=== PATIENT | female | born 1935 | race Caucasian/White ===

== ENCOUNTER → 2019-12-12 | Outpatient (CLI) | payer OTHER ==
[~2019-12-12] MED LIST: CALCA500CH PO; ERGO400 PO; FOLI1 PO; GLYCPS PR; HYDCHL50 PO; HYDSUL200 PO; LIDO5TP TOP; MAGNESIUM CITR100 MG PO; META800 PO; METTREX2.5 PO; Micro-K10 MEQ PO; Milk Of Ma400 MG/5 M PO; NAPR550 PO; Norco 5-325 Ta1 EACH PO; OXYACE5T PO; Omeprazole20 M1 PO; PRED20 PO; PROP60 PO; ROFE25 PO; STOOL SOFTENER1 EAC1 PO
[2019-12-12 12:57] LABS: Bun/Creatinine Ratio 12.9 (12.0-20.0); Calcium, Blood 9.8 mg/dL (8.5-10.1); Creatinine, Blood 0.93 mg/dL (0.40-1.00); Potassium, Blood 4.4 mmol/L (3.5-5.5)
[2019-12-12 13:12] LABS: BASOPHILS ABSOLUTE AUTO 0.07 K/mm3 (0.00-0.23); BASOPHILS PERCENT AUTO 1 % (0-2); EOSINOPHILS ABSOLUTE AUTO 0.36 K/mm3 (0.00-0.68); EOSINOPHILS PERCENT AUTO 5 % (0-6); Hematocrit 39.7 % (33.0-51.0); Hemoglobin 13.2 g/dL (11.5-16.0); IMMATURE GRAN ABSOLUTE AUTO 0.04 K/mm3 (0.00-0.10); IMMATURE GRAN PERCENT AUTO 1 % (0-1); LYMPHOCYTES ABSOLUTE AUTO 1.48 K/mm3 (0.84-5.20); LYMPHOCYTES PERCENT AUTO 21 % (21-46); MONOCYTES PERCENT AUTO 10 % (4-13); Mean Corpuscular HGB 33.2 pg (26.0-34.0); Mean Corpuscular HGB Conc 33.2 g/dL (31.5-36.5); Mean Corpuscular Volume 100 fL (80-100); Mean Platelet Volume 12.3 fL (9.1-12.4); NEUTROPHILS ABSOLUTE AUTO 4.51 K/mm3 (1.96-9.15); NEUTROPHILS PERCENT AUTO 63 % (41-73); Platelet Count 246 K/mm3 (150-400); RDW Coefficient Variation 13.9 % (11.7-14.2); RDW Standard Deviation 50.2 fL (35.1-46.3); Red Blood Cell Count 3.97 M/mm3 (3.80-5.20); White Blood Cell Count 7.16 K/mm3 (4.00-11.30)
== END | disposition home or self-care (01) ==
LOC: LAB SHORT 12:47 → LAB EV 12:47
PROVIDERS: Physician Assistant Surgical
DX: J81.1 Chronic pulmonary edema (principal)
CPT/HCPCS: 80048; 83880; 85025

== ENCOUNTER → 2020-01-06 | Outpatient (CLI) | payer OTHER ==
[2020-01-06 15:16] LABS: Hematocrit 42.5 % (33.0-51.0); Hemoglobin 14.1 g/dL (11.5-16.0); Mean Corpuscular HGB 33.5 pg (26.0-34.0); Mean Corpuscular HGB Conc 33.2 g/dL (31.5-36.5); Mean Corpuscular Volume 101 fL (80-100); Mean Platelet Volume 12.2 fL (9.1-12.4); Platelet Count 305 K/mm3 (150-400); RDW Coefficient Variation 14.1 % (11.7-14.2); RDW Standard Deviation 51.3 fL (35.1-46.3); Red Blood Cell Count 4.21 M/mm3 (3.80-5.20)
[2020-01-06 15:18] LABS: BASOPHILS ABSOLUTE AUTO 0.07 K/mm3 (0.00-0.23); BASOPHILS PERCENT AUTO 1 % (0-2); EOSINOPHILS ABSOLUTE AUTO 0.16 K/mm3 (0.00-0.68); EOSINOPHILS PERCENT AUTO 2 % (0-6); IMMATURE GRAN ABSOLUTE AUTO 0.07 K/mm3 (0.00-0.10); IMMATURE GRAN PERCENT AUTO 1 % (0-1); LYMPHOCYTES ABSOLUTE AUTO 2.07 K/mm3 (0.84-5.20); LYMPHOCYTES PERCENT AUTO 21 % (21-46); MONOCYTES ABSOLUTE AUTO 0.97 K/mm3 (0.16-1.47); MONOCYTES PERCENT AUTO 10 % (4-13); NEUTROPHILS ABSOLUTE AUTO 6.45 K/mm3 (1.96-9.15); NEUTROPHILS PERCENT AUTO 66 % (41-73); White Blood Cell Count 9.79 K/mm3 (4.00-11.30)
[2020-01-06 15:21] LABS: Alanine Aminotransfer (ALT/SGP 18 U/L (12-78); Albumin, Blood 3.9 g/dL (3.4-5.0); Albumin/Globulin Ratio 1.1 (0.8-1.8); Alk Phos 83 U/L (40-126); Anion Gap 8 mmol/L (6-16); Aspartate Aminotrans (AST/SGOT 17 U/L (12-37); Bilirubin, Total 0.4 mg/dL (0.1-1.0); Blood Urea Nitrogen 20 mg/dL (8-24); Bun/Creatinine Ratio 21.3 (12.0-20.0); CO2, Blood 28 mmol/L (21-32); Chloride, Blood 105 mmol/L (98-108); Creatinine, Blood 0.94 mg/dL (0.40-1.00); Globulin, Blood 3.7 g/dL (2.2-4.0); Glomerular Filtration Rate 57 (60-); Glucose, Blood 92 mg/dL (70-99); Potassium, Blood 4.2 mmol/L (3.5-5.5); Sodium, Blood 141 mmol/L (136-145); Total Protein, Blood 7.6 g/dL (6.4-8.2); Troponin I <0.017 ng/mL (0.000-0.040)
== END | disposition home or self-care (01) ==
LOC: LAB EV 15:01 → LAB SHORT 15:01
PROVIDERS: Physician Assistant
DX: R07.9 Chest pain, unspecified (principal)
CPT/HCPCS: 80053; 84484; 85025

== ENCOUNTER 2021-01-29 12:19 | Day surgery (SDC) | payer OTHER ==
[~2021-01-29] VITALS: Ht 154.9 cm; Wt 56.6 kg
--- NOTE | 2021-01-29 13:26 | NUR ---
01/29/21 1326 Chrystal Willson FIRST ATTEMPT MISSED BY ANKIT IN THE RIGHT HAND. SECOND ATTEMPT SUCCESSFUL IN THE RIGHT WRIST BY RN. PT TYRONE.
== END 2021-01-29 14:51 | disposition home or self-care (01) ==
LOC: ORSCSDS 12:19
PROVIDERS: Internal Medicine Gastroenterology
PROC: 0DB68ZX Excision of Stomach, Via Natural or Artificial Opening Endoscopic, Diagnostic (ICD-10-PCS; principal; 2021-01-29 13:45)
PROC: 0D757ZZ Dilation of Esophagus, Via Natural or Artificial Opening (ICD-10-PCS; principal; 2021-01-29 13:45)
PROC: 0DJD8ZZ Inspection of Lower Intestinal Tract, Via Natural or Artificial Opening Endoscopic (ICD-10-PCS; principal; 2021-01-29 13:45)
DX: R13.10 Dysphagia, unspecified (principal); R10.13 Epigastric pain; Z80.0 Family history of malignant neoplasm of digestive organs; Z99.81 Dependence on supplemental oxygen; J44.9 Chronic obstructive pulmonary disease, unspecified; Z79.899 Other long term (current) drug therapy
CPT/HCPCS: 87081; J2704; J7120

== ENCOUNTER → 2021-12-08 | Outpatient (CLI) | payer OTHER | END | disposition home or self-care (01) | LOC: LAB SHORT 15:22 → PLD 15:22 | DX: L82.1 Other seborrheic keratosis (principal) | CPT/HCPCS: 88305 ==

== ENCOUNTER → 2023-06-27 | Outpatient (CLI) | payer OTHER | END | disposition home or self-care (01) | LOC: LAB SHORT 07:39 → LAB 07:39 → PLD 07:39 | DX: L57.0 Actinic keratosis (principal) | CPT/HCPCS: 88305 ==

== ENCOUNTER 2023-07-12 15:29 | Inpatient (IN) | payer OTHER ==
[~2023-07-12] VITALS: Ht 162.6 cm; Wt 53.0 kg
[~2023-07-12 15:29] MED LIST changes: +DOCUZEN 8.6-501 EACH PO; +OMEP20ER PO; -Omeprazole20 M1 PO; +PROP120ER PO; -PROP60 PO; -STOOL SOFTENER1 EAC1 PO
[2023-07-12 17:04] LABS: BASOPHILS ABSOLUTE AUTO 0.06 K/mm3 (0.00-0.23); BASOPHILS PERCENT AUTO 1 % (0-2); EOSINOPHILS ABSOLUTE AUTO 0.25 K/mm3 (0.00-0.68); EOSINOPHILS PERCENT AUTO 3 % (0-6); Hematocrit 40.2 % (33.0-51.0); Hemoglobin 13.2 g/dL (11.5-16.0); IMMATURE GRAN ABSOLUTE AUTO 0.03 K/mm3 (0.00-0.10); IMMATURE GRAN PERCENT AUTO 0 % (0-1); LYMPHOCYTES ABSOLUTE AUTO 1.28 K/mm3 (0.84-5.20); LYMPHOCYTES PERCENT AUTO 17 % (21-46); MONOCYTES PERCENT AUTO 11 % (4-13); Mean Corpuscular HGB 34.6 pg (26.0-34.0); Mean Corpuscular HGB Conc 32.8 g/dL (31.5-36.5); Mean Corpuscular Volume 106 fL (80-100); Mean Platelet Volume 12.3 fL (9.1-12.4); NEUTROPHILS ABSOLUTE AUTO 5.07 K/mm3 (1.96-9.15); NEUTROPHILS PERCENT AUTO 68 % (41-73); Platelet Count 255 K/mm3 (150-400); RDW Coefficient Variation 14.4 % (11.7-14.2); RDW Standard Deviation 55.6 fL (35.1-46.3); Red Blood Cell Count 3.81 M/mm3 (3.80-5.20); White Blood Cell Count 7.49 K/mm3 (4.00-11.30)
[2023-07-12 17:15] LABS: Albumin, Blood 3.8 g/dL (3.4-5.0); Albumin/Globulin Ratio 1.2 (0.8-1.8); Bilirubin, Total 0.4 mg/dL (0.1-1.0); Bun/Creatinine Ratio 17.3 (12.0-20.0); Calcium, Blood 9.9 mg/dL (8.5-10.1); Creatinine, Blood 0.81 mg/dL (0.40-1.00); Globulin, Blood 3.3 g/dL (2.2-4.0); Potassium, Blood 4.3 mmol/L (3.5-5.5); Total Protein, Blood 7.1 g/dL (6.4-8.2)
[2023-07-12] MEDS ORDERED: TRAZ50 PO (21:22)
[2023-07-12] MEDS ORDERED: FOSAMAX70 MG PO (21:26)
[2023-07-12] MEDS ORDERED: GEMTESA75 MG PO (21:27)
[2023-07-12 21:55] VITALS: BP 151/99
[2023-07-13 02:36] VITALS: BP 145/67
--- NOTE | 2023-07-13 05:41 | NUR ---
SHIFT SUMMARY ADMIT FOR L SIDED WEAKNESS, PT REPORTS VERTIGO, DIZZINESS, AND NECK/ HEADACHE PAIN. MINIMAL SLEEP DURING THIS SHIFT. PT CONTINUES TO CALL OUT FOR DAUGHTERS AND REQUEST ITEMS FROM HOME CLOSETS. ABLE TO REDIRECT PT FOR FEW MINUTES. VSS, PT REFUSES CONT BIOX. CONTINENT BUT ATTENDS IN PLACE FOR URGENCY INCONT, USE OF BEDPAN. TELE IN PLACE W/ SEVERAL REPORTS FROM NEON SIGN MECHANIC R/T SVT. BED ALARM IN USE. CALL LIGHT W/ IN REACH ALTHOUGH PT DOES NOT USE. PLANS FOR ECHO TODAY.
[2023-07-13 06:13] LABS: CHOL/HDL RATIO 2.5; Cholesterol 185 mg/dL (50-200); HDL Cholesterol 75 mg/dL (>39); LDL/HDL RATIO 1.3; Low Density Lipoprotein Chol 99 mg/dL (0-110); Triglycerides 55 mg/dL (30-160); Very Low Density Lipoprot Chol 11 mg/dL (6-32)
[2023-07-13 08:35] VITALS: BP 153/97
[2023-07-13 15:21] VITALS: BP 157/73
--- NOTE | 2023-07-13 17:20 | NUR ---
SHIFT SUMMARY Pt remains oriented to self only this shift. Easily redirectable with short term memory loss. Bed alarm on, pt continues to try and get oob. Iv pulled out this am, restarted after video camera in place. Diversion activities attempted without success. Chela placed as ordered. Family now at bedside and updated. VSS, ST on tele. Resp even nonlabored on RA. Continent of urine, will ask to use toilet. 1 person ast to BSC. Mech soft diet with nectar thick liquids. Meds in applesauce.
[2023-07-13 19:41] VITALS: BP 163/113
--- NOTE | 2023-07-14 05:07 | NUR ---
END OF SHIFT SUMMARY PT A&O x1, TO SELF ONLY, PT WAS TRANSFERED TO THE SCU NOW IN ROOM #344. PT HAS CAMERA/MONITOR FOR SAFETY. PT RESTLESS ALL OF LAST NIGHT, ATTEMPTING TO GET OOB, PULLING TELE CORDS OFF. SOFT WRIST RESTRAINTS PLACED ON DURING DAY SHIFT. PT FINALLY APPEARED TO BE SLEEPING COMFORTABLY EARLY THIS MORNING AROUND 0300. PT YELLING OUT FOR "JEFERSON" AND WONDERING WHERE JEFERSON WAS. PT EXPERIENCED SOME VISUAL HALLUCINATIONS, PT THOUGHT THERE WAS A MAN SITTING IN HER ROOM. PT REORIENTED, NOT VERY SUCCESSFUL. PT TOOK MEDICATION CRUSHED IN PUDDING. PT RECEIVED ONE TIME DOSE OF SEROQUEL, AND PO TRAZODONE AT 2100 MED PASS. FLUIDS AND SNACKS OFFERED, CIRCULATION CHECKED, NO INJURIES NOTED. CALL LIGHT WITHIN REACH, WCTM.
[2023-07-14 08:14] VITALS: BP 173/80
--- NOTE | 2023-07-14 12:08 | NUR ---
FAMILY IN VISITING, PATIENT WAKES PLEASANTLY AND THEN BACK TO SLEEP, UNABLE TO STAY AWAKE FOR 5 MINUTES, BREAKFAST AND AM MEDICATIONS HELD FOR WHEN PATIENT IS MORE ALERT, RESTRAINTS OFF AR 1046, PATIENT CALM, NOT FIGITING, NO RESTLESS MOVEMENTS, WCTM
[2023-07-14 12:35] VITALS: BP 161/65
[2023-07-14 16:43] VITALS: BP 145/78
--- NOTE | 2023-07-14 19:18 | NUR ---
ALERTNESS INCREASED, ORIENTED TO SELF ANF FAMILY, PATIETN EASILY RE-DIRECTED AND CONSOLABLE, RESTRAINTS OFF SINCE 1045, NO AGGITATION IMPULSIVENESS, BED ALARM ON, HTN 160 SBP, WILL RELAY TO PM RN
[2023-07-14 21:10] VITALS: BP 123/69
[2023-07-15 05:11] LABS: BASOPHILS ABSOLUTE AUTO 0.05 K/mm3 (0.00-0.23); BASOPHILS PERCENT AUTO 1 % (0-2); EOSINOPHILS ABSOLUTE AUTO 0.25 K/mm3 (0.00-0.68); EOSINOPHILS PERCENT AUTO 2 % (0-6); Hematocrit 38.8 % (33.0-51.0); Hemoglobin 13.1 g/dL (11.5-16.0); IMMATURE GRAN ABSOLUTE AUTO 0.06 K/mm3 (0.00-0.10); IMMATURE GRAN PERCENT AUTO 1 % (0-1); LYMPHOCYTES ABSOLUTE AUTO 1.97 K/mm3 (0.84-5.20); LYMPHOCYTES PERCENT AUTO 18 % (21-46); MONOCYTES ABSOLUTE AUTO 1.29 K/mm3 (0.16-1.47); MONOCYTES PERCENT AUTO 12 % (4-13); Mean Corpuscular HGB Conc 33.8 g/dL (31.5-36.5); Mean Corpuscular Volume 104 fL (80-100); NEUTROPHILS ABSOLUTE AUTO 7.39 K/mm3 (1.96-9.15); NEUTROPHILS PERCENT AUTO 67 % (41-73); Platelet Count 266 K/mm3 (150-400); RDW Coefficient Variation 14.1 % (11.7-14.2); RDW Standard Deviation 53.2 fL (35.1-46.3); Red Blood Cell Count 3.74 M/mm3 (3.80-5.20); White Blood Cell Count 11.01 K/mm3 (4.00-11.30)
[2023-07-15 05:19] VITALS: BP 114/61
[2023-07-15 05:34] LABS: Albumin, Blood 3.4 g/dL (3.4-5.0); Albumin/Globulin Ratio 0.9 (0.8-1.8); Bilirubin, Total 0.7 mg/dL (0.1-1.0); Bun/Creatinine Ratio 23.7 (12.0-20.0); Calcium, Blood 9.9 mg/dL (8.5-10.1); Creatinine, Blood 0.72 mg/dL (0.40-1.00); Globulin, Blood 3.7 g/dL (2.2-4.0); Potassium, Blood 4.2 mmol/L (3.5-5.5); Total Protein, Blood 7.1 g/dL (6.4-8.2)
--- NOTE | 2023-07-15 05:55 | NUR ---
SHIFT SUMMARY NOC PT A/O TO SELF AND FAMILY. PLEASANTLY CONFUSED AND COOPERATIVE WITH CARE. NO ACUTE CHANGES TO REPORT. NO C/O OF BROWN OR ABD PAIN SO FAR DURING SHIFT. PT HAS NOT CALLED OUT FOR DAUGHTERS. ON TELE RUNNING SINUS RHYTHM @ 82 BPM. PT HAS SLEPT FOR MAJORITY OF SHIFT, BUT HAD STAFF ASSIST WITH ATTEMPTING TO CALL FAISAL ESTRADA, BUT ONLY VOICE MAIL REACHED. PT IS ON CAMERA WITH ONLY ONE CALL FROM REMOTE MONITOR FOR GETTING TOO CLOSE TO RAILING. PT IS CURRENTLY RESTING WITH BED IN LOWEST POSITION, AND CALL LIGHT WITHIN REACH.
[2023-07-15 07:45] VITALS: BP 144/67
--- NOTE | 2023-07-15 09:21 | NUR ---
PT IN WORKING WITH PATIENT, PATIENT EMOTIONAL AND CONFUSED THIS AM, "I AM BEING HELD HOSTAGE IN HERE WHY CAN I JUST WALK OUT" PATIENT EDUCATED MULTIPLE TIMES THE NEED FOR PT TO STRENGTHEN HER AMBULATION, PATIENT HAS ONLY TRANSFERRED TO THE BSC PREVIOUSLY, MONITOR AND BED/CHAIR ALARMS ON. CALL LIGHT WITH IN REACH
[2023-07-15 16:47] VITALS: BP 94/58
--- NOTE | 2023-07-15 18:31 | NUR ---
ALERTNESS AND ORIENTATION IMPROVED, ABLE TO MAKE NEEDS KNOWN, FAMILY VISITED THROUGH OUT THE DAY, WORKED WITH PT, 2 PERSON MAX ASSIST TO COMMODE, PATIENT HARD TO RE-ORIENT AT TIMES AND UNCONSOLABLE AT TIMES, VSS, MEDICATED WITH PRN SERQUEL AND TYLENOL, NICOTINE PATCH STARTED TODAY, BED ALARM ON, CAMERA MONITOR ON, CALL LIGHT WITH IN REACH, PATIENT MAKES NEEDS KNOWN, WILL RELAY TO PM RN
[2023-07-15 19:51] VITALS: BP 120/68
[2023-07-16 03:36] VITALS: BP 135/72
--- NOTE | 2023-07-16 04:00 | NUR ---
SHIFT SUMMARY PATIENT HAD NO ACUTE CHANGES. ON VIRTUAL MONITOR X ONE OOB ATTEMPT. AXOX 2 AND 2 MAX ASSIST TO BSC. PIV REMAINS INTACT. TELE MONITOR NSR 79. VSS/AFEBRILE. TAKES MEDICATION WHOLE 1-2 IN APPLESAUCE. DENIES CHEST PAIN, SOB, AND N/V. REPORTED FOOT/WRIST PAIN AND TYLENOL 650 MG GIVEN PER EMAR. ON ROOM AIR. CALL LIGHT IN REACH. BED IN LOWEST POSITION AND ALARM ACTIVATED. WILL CONTINUE TO MONITOR UNTIL DAY SHIFT NURSE ASSUMES CARE.
[2023-07-16 06:13] LABS: BASOPHILS ABSOLUTE AUTO 0.07 K/mm3 (0.00-0.23); BASOPHILS PERCENT AUTO 1 % (0-2); EOSINOPHILS ABSOLUTE AUTO 0.29 K/mm3 (0.00-0.68); EOSINOPHILS PERCENT AUTO 3 % (0-6); Hematocrit 39.5 % (33.0-51.0); Hemoglobin 12.8 g/dL (11.5-16.0); IMMATURE GRAN ABSOLUTE AUTO 0.05 K/mm3 (0.00-0.10); IMMATURE GRAN PERCENT AUTO 1 % (0-1); LYMPHOCYTES PERCENT AUTO 26 % (21-46); MONOCYTES ABSOLUTE AUTO 1.01 K/mm3 (0.16-1.47); MONOCYTES PERCENT AUTO 12 % (4-13); Mean Corpuscular HGB 34.3 pg (26.0-34.0); Mean Corpuscular HGB Conc 32.4 g/dL (31.5-36.5); Mean Corpuscular Volume 106 fL (80-100); Mean Platelet Volume 11.9 fL (9.1-12.4); NEUTROPHILS ABSOLUTE AUTO 4.88 K/mm3 (1.96-9.15); NEUTROPHILS PERCENT AUTO 57 % (41-73); Platelet Count 240 K/mm3 (150-400); RDW Coefficient Variation 14.1 % (11.7-14.2); RDW Standard Deviation 54.4 fL (35.1-46.3); Red Blood Cell Count 3.73 M/mm3 (3.80-5.20)
[2023-07-16 07:03] LABS: Bun/Creatinine Ratio 25.3 (12.0-20.0); Calcium, Blood 9.7 mg/dL (8.5-10.1); Creatinine, Blood 0.99 mg/dL (0.40-1.00); Potassium, Blood 3.8 mmol/L (3.5-5.5)
[2023-07-16 07:43] VITALS: BP 120/69
[2023-07-16 16:07] VITALS: BP 132/72
[2023-07-16 19:17] VITALS: BP 136/71
[2023-07-17 02:26] VITALS: BP 141/71
--- NOTE | 2023-07-17 04:04 | NUR ---
SHIFT SUMMARY PATIENT HAD NO ACUTE CHANGES. AXO X 2 AND 2 MAX ASSIST TO BSC. MEDICATION SEROQUEL AND TYLENOL GIVEN PRN. VSS/AFEBRILE. DENIES CHEST PAIN, SOB, AND N/V. ON ROOM AIR. NO OOB EVENTS. PIV REMAINS INTACT. RESTED IN BED T/O SHIFT. CALL LIGHT IN REACH. BED IN LOWEST POSITION AND ALARM ACTIVATED. WILL CONTINUE TO MONITOR UNTIL DAY SHIFT NURSE ASSUMES CARE.
[2023-07-17 07:30] VITALS: BP 142/82
[2023-07-17 16:24] VITALS: BP 117/76
--- NOTE | 2023-07-17 17:17 | NUR ---
SHIFT SUMMARY- PT IS ALERT, PLESANT AND COOPERATIVE. SHE IS EATING AND DRINKING WELL. SLEPT INTERMITENTLY THROUGHOUT THIS SHIF. FAMILY WAS AT BEDSIDE MOST OF THIS SHIFT. SHE WORKED WITH PT/ OT/ ST AND TOLORATED WELL. MARKETING STRATEGIST SPOKE WITH BOTH DAUGHTERS ABOUT DISCHARGE PLAN. PT REPORTED THAT SHE WANTED TO GO HOME AND NOT TO A SNF, BUT PT AND OT ARE STILL RECOMENDING SNF. HER BED IS IN THE LOW POSITION AND CALL LIGHT IS WITIN REACH.
[2023-07-17 19:07] VITALS: BP 106/57
[2023-07-18 01:05] VITALS: BP 150/70
--- NOTE | 2023-07-18 03:46 | NUR ---
SHIFT SUMMARY ADMITTED FOR CVA. LEFT SIDED WEAKNESS, VISUAL DEFICIT. FULL CODE. PLAN IS FOR PLACEMENT. MEDS GIVEN WHOLE WITH APPLESAUCE. A&O X2 FORGETFUL. BED ALARM ON FOR IMPULSIVENESS. SHE IS CONTINENT. SHE WAS LIVING ALONE.
[2023-07-18 08:02] VITALS: BP 104/70
[2023-07-18 15:14] VITALS: BP 115/59
--- NOTE | 2023-07-18 18:29 | NUR ---
SHIFT SUMMARY PT ALERT TO SELF AND FAMILY AT START OF SHIFT BUT MORE AWARE OF PLACE AND SITUATION THE DAY WENT ON. NO ACUTE CHANGES. VSS. PT DID C/O OF HEADACHE. WARM WASHCLOTH OFFERED AND MEDICATED PER EMAR. FAMILY AT BEDSIDE T/O DAY. BED IN LOWEST POSITION AND CALL LIGHT IN REACH.
[2023-07-18 20:25] VITALS: BP 124/73
--- NOTE | 2023-07-19 07:09 | NUR ---
SHIFT SUMMARY NOC PT A/O X 2-3. PLEASANT AND COOPERATIVE WITH CARE, BUT CONFUSED AT TIMES. NO ACUTE CHANGES TO REPORT. PT ABLE TO AMBULATE WITH FWW SBA TO BATHROOM. PT HAD NO C/O OF BROWN. PT IS AWAITING SNF PLACEMENT OUTSIDE OF AREA WITH REFERRALS IN [facility], AND [place]. PT STATES DESIRE TO RETURN TO OWN HOME. PT IS CURRENTLY RESTING WITH BED ALARM ON, BED IN LOWEST POSITION, AND CALL LIGHT WITHIN REACH.
[2023-07-19 07:16] VITALS: BP 123/57
[2023-07-19] MEDS ORDERED: Acetaminophen650 M1 PO (12:56)
[2023-07-19] MEDS ORDERED: AMLO5 PO (12:57)
[2023-07-19] MEDS ORDERED: ATOR80 PO (12:57)
[2023-07-19] MEDS ORDERED: CLOP75 PO (12:57)
[2023-07-19] MEDS ORDERED: TRAM50 PO (12:58)
[2023-07-19] MEDS ORDERED: NICO21TP TOP (12:58)
[2023-07-19] MEDS ORDERED: PROP80ER PO (12:59)
[2023-07-19 15:27] VITALS: BP 124/59
--- NOTE | 2023-07-19 19:36 | NUR ---
SHIFT SUMMARY PT A&OX3. PT MORE EMOTIONAL TODAY. PT VERBALIZED MISSING HER AND STATING THAT SHE WATNED TO "GO HOME WERE THINGS WHERE FAMILIAR". PT ALSO MORE IRRITABLE TODAY AND STATED SEVERAL TIMES THAT SHE WANTED TO GO HOME. FAMILY AT BESIDE T/O DAY. FAMILY AND THIS NURSE EDUCATED PT ON TREATMENT PLAN AND BENEFITS OF CONTINUED REHABILITION AT SNF. PT WORKED WITH PHYSICAL THERAPY, OT, AND ST TODAY AND TOLERATED WELL. VSS. PT DID C/O HEADACHE AND MEDIATED PER EMAR. PT CALLS APPROPRIATLY. BED IN LOWEST POSITION AND CALL LIGHT IN REACH.
[2023-07-19 19:46] VITALS: BP 122/68
[2023-07-20 04:00] VITALS: BP 133/71
--- NOTE | 2023-07-20 05:06 | NUR ---
SHIFT SUMMARY PT IS A&OX3, OFF ON DATE. VSS. NO NEW ACUTE NEURO CHANGES THIS SHIFT. C/O BROWN AND LEFT SIDE ON RIB CAGE, MANAGED WITH PRN TYLENOL. TOLERATING A REGULAR DIET. VOIDING IN BSC. X1 ASSIST WITH FWW. BED ALARM SET FOR PT'S SAFETY. BED IN LOWEST POSITION, CALL LIGHT WITHIN REACH. FIRE SAFETY CHECKS COMPLETED
[2023-07-20 07:12] VITALS: BP 131/71
[2023-07-20 15:43] VITALS: BP 104/51
[2023-07-20 19:31] VITALS: BP 97/56
--- NOTE | 2023-07-20 19:48 | NUR ---
SHIFT SUMMARY PATIENT RESTING IN BED OR RECLINER CHAIR THROUGH MOST OF SHIFT WITH DAUGHTER KENTRELL. DAUGHTER ASSISTS PATIENT TO BATHROOM WITH WALKER WITH NO ISSUES. PATIENT MEDICATED FOR HEADACH AND LEFT RIB PAIN PER EMAR WITH GOOD RELIEF FROM TYLENOL. PATIENT WAS CALM THROUGHOUT DAY, SHE VERBALIZES ANXIOUSNESS THIS EVENENING AFTER DAUGHTER LEFT AROUND 5:00PM. PATIENT UPSET SHE DOESNT KNOW WHAT THE PLAN IS, LOOM CHANGER REMINDED PATIENT OF PLAN TO DISCHARGE TO SNF TOMORROW AND THAT ONE OF HER DAUGHTERS IS PLANNING TO TAKE HER. BED IN LOW POSITION. PATIENT USES CALL LIGHT SOME, BED ALARM ON FOR PATIENT SAFETY.
--- NOTE | 2023-07-21 04:44 | NUR ---
SHIFT SUMMARY; NO ACUTE CHANGES OVERNIGHT. THE PT IS AXO X2-3 AND A 1 ASSIST TO THE BSC W/ A FWW. THE PT HAS BEEN SLEEPING IN BED T/O THE NIGHT. PT IS ANXIOUS TO LEAVE TO [facility] TODAY, PT IS HOWEVER FEARFUL THAT HER DAUGHTER WILL FORGET TO PICK HER UP AND TAKE HER TODAY. THE PT HAS DENIED ANY PAIN, CHEST PAIN/PRESSURE, SOB OR N/V THIS SHIFT. CURRENTLY THE PT IS SLEEPING IN BED WITH THE BED IN THE LOWEST POSITION AND THE CALL LIGHT AT BEDSIDE. FIRE SAFETY ROUNDS COMPLETED.
[2023-07-21 06:03] VITALS: BP 143/62
[2023-07-21 07:43] VITALS: BP 125/58
--- NOTE | 2023-07-21 13:36 | NUR ---
DISCHARGE: PT DISCHARGED @ 1240 VIA WHEELCHAIR WITH DAUGHTERS. PT GOING TO SNF IN [place]. REPORT CALLED TO FACILITY. NO IV TO REMOVE. PT HAD LARGE BM PRIOR TO D/C. NO CONCERNS AT TIME OF DISCHARGE.
== END 2023-07-21 13:13 | DRG 65 ==
LOC: ER 15:29 → MEDS 15:30 → ENPENDDIS 07-19 12:18 → MEDS 07-21 13:13
PROVIDERS: Family Medicine; Student in an Organized Health Care Education/Training Program; ADMIT Internal Medicine
DX: I63.9 Cerebral infarction, unspecified (principal); G81.94 Hemiplegia, unspecified affecting left nondominant side; J44.9 Chronic obstructive pulmonary disease, unspecified; R41.0 Disorientation, unspecified; R29.6 Repeated falls; I10 Essential (primary) hypertension; S51.819A Laceration without foreign body of unspecified forearm, initial encounter; F17.210 Nicotine dependence, cigarettes, uncomplicated; K21.9 Gastro-esophageal reflux disease without esophagitis; M19.90 Unspecified osteoarthritis, unspecified site; R29.704 NIHSS score 4; Z71.6 Tobacco abuse counseling; Z88.2 Allergy status to sulfonamides; Z88.8 Allergy status to other drugs, medicaments and biological substances; Z88.4 Allergy status to anesthetic agent
CPT/HCPCS: 36415; 70450; 70496; 70498; 71046; 72125; 80048; 80053; 80061; 83036; 85025; 85651; 92526; 92610; 93005; 93010; 93306; 94760; 94762; 96372; 96374; 96375; 96376; 97110; 97112; 97116; 97161; 97166; 97530; 97535; 99285-25; A9270; G0378; J0360; J1650; J3010; J8610; Q9967

== ENCOUNTER 2023-10-10 15:21 | Inpatient (IN) | payer OTHER ==
[~2023-10-10] VITALS: Ht 154.9 cm; Wt 49.9 kg
[~2023-10-10 15:21] MED LIST changes: +AMLO5 PO; +ATOR80 PO; +Acetaminophen650 M1 PO; +CLOP75 PO; +FOSAMAX70 MG PO; +GEMTESA75 MG PO; +NICO21TP TOP; +PROP80ER PO; +TRAM50 PO; +TRAZ50 PO
[2023-10-10 16:06] LABS: Hematocrit 40.9 % (33.0-51.0); Hemoglobin 13.4 g/dL (11.5-16.0); Mean Corpuscular HGB 31.9 pg (26.0-34.0); Mean Corpuscular HGB Conc 32.8 g/dL (31.5-36.5); Mean Corpuscular Volume 97 fL (80-100); Platelet Count 229 K/mm3 (150-400); RDW Coefficient Variation 15.9 % (11.7-14.2); RDW Standard Deviation 56.2 fL (35.1-46.3)
[2023-10-10 16:09] LABS: Mean Platelet Volume 12.9 fL (9.1-12.4); White Blood Cell Count 8.52 K/mm3 (4.00-11.30)
[2023-10-10 16:27] LABS: Albumin/Globulin Ratio 0.7 (0.8-1.8); BASOPHILS PERCENT MAN 0 % (0-2); Bilirubin, Direct 3.1 mg/dL (0.0-0.3); Bilirubin, Indirect 0.9 mg/dL (0.1-0.7); Bun/Creatinine Ratio 14.9 (12.0-20.0); Calcium, Blood 9.8 mg/dL (8.5-10.1); Creatinine, Blood 0.87 mg/dL (0.40-1.00); EOSINOPHILS ABSOLUTE MAN 0.34 K/mm3 (0.00-0.68); EOSINOPHILS PERCENT MAN 4 % (0-6); Globulin, Blood 4.4 g/dL (2.2-4.0); LYMPHOCYTES ABSOLUTE MAN 1.78 K/mm3 (0.84-5.20); LYMPHOCYTES PERCENT MAN 21 % (21-46); MONOCYTES ABSOLUTE MAN 0.93 K/mm3 (0.16-1.47); MONOCYTES PERCENT MAN 11 % (4-13); NEUTROPHILS ABSOLUTE MAN 5.45 K/mm3 (1.96-9.15); Potassium, Blood 3.9 mmol/L (3.5-5.5); SEG NEUTROPHILS PERCENT MAN 64 % (41-73); TOTAL CELLS COUNTED 100; Total Protein, Blood 7.4 g/dL (6.4-8.2)
[2023-10-10] MEDS ORDERED: LORazepam 2 MG/ML 1ML Injection IV ONE (20:10)
[2023-10-10] MEDS ORDERED: NS 1,000 ML IV SCH (20:20)
[2023-10-10] MEDS ORDERED: Gabapentin 300 MG Cap PO ONE (20:45)
[2023-10-10] MEDS ORDERED: Gabapentin 100 MG Cap PO ONE (21:10)
[2023-10-10] MEDS ORDERED: GABA100 PO (22:09)
[2023-10-10] MEDS ORDERED: Melatonin 5 MG Tablet PO PRN (22:15)
[2023-10-10 22:22] LABS: International Normalized Ratio 1.16; Prothrombin Time Results 12.1 Sec (9.7-11.5)
[2023-10-10 23:05] VITALS: BP 150/52
[2023-10-10 23:12] LABS: Acetaminophen, Random <2.0 ug/mL (10.0-30.0)
[2023-10-10] MEDS ORDERED: PANTOPRAZOLE SO2010 PO (23:29)
[2023-10-10] MEDS ORDERED: ESCITALOPRAM OXA5 MG PO (23:30)
[2023-10-11 02:25] VITALS: BP 133/76
[2023-10-11 05:41] LABS: BASOPHILS ABSOLUTE AUTO 0.08 K/mm3 (0.00-0.23); BASOPHILS PERCENT AUTO 1 % (0-2); EOSINOPHILS ABSOLUTE AUTO 0.72 K/mm3 (0.00-0.68); EOSINOPHILS PERCENT AUTO 9 % (0-6); Hematocrit 36.1 % (33.0-51.0); IMMATURE GRAN ABSOLUTE AUTO 0.01 K/mm3 (0.00-0.10); IMMATURE GRAN PERCENT AUTO 0 % (0-1); LYMPHOCYTES ABSOLUTE AUTO 1.89 K/mm3 (0.84-5.20); LYMPHOCYTES PERCENT AUTO 24 % (21-46); MONOCYTES ABSOLUTE AUTO 1.38 K/mm3 (0.16-1.47); MONOCYTES PERCENT AUTO 17 % (4-13); Mean Corpuscular HGB 31.7 pg (26.0-34.0); Mean Corpuscular HGB Conc 33.2 g/dL (31.5-36.5); Mean Corpuscular Volume 96 fL (80-100); NEUTROPHILS ABSOLUTE AUTO 3.91 K/mm3 (1.96-9.15); NEUTROPHILS PERCENT AUTO 49 % (41-73); Platelet Count 195 K/mm3 (150-400); RDW Coefficient Variation 15.8 % (11.7-14.2); RDW Standard Deviation 55.3 fL (35.1-46.3); Red Blood Cell Count 3.78 M/mm3 (3.80-5.20); White Blood Cell Count 7.99 K/mm3 (4.00-11.30)
[2023-10-11 05:49] LABS: Mean Platelet Volume 13.4 fL (9.1-12.4)
[2023-10-11] MEDS ORDERED: Omeprazole 20 MG CapCR PO SCH (06:00)
[2023-10-11 06:55] LABS: Albumin, Blood 2.5 g/dL (3.4-5.0); Albumin/Globulin Ratio 0.7 (0.8-1.8); Bilirubin, Direct 2.6 mg/dL (0.0-0.3); Bilirubin, Total 3.4 mg/dL (0.1-1.0); Bun/Creatinine Ratio 14.5 (12.0-20.0); Creatinine, Blood 0.76 mg/dL (0.40-1.00); Globulin, Blood 3.6 g/dL (2.2-4.0); Potassium, Blood 3.5 mmol/L (3.5-5.5); Total Protein, Blood 6.1 g/dL (6.4-8.2)
[2023-10-11 07:30] VITALS: BP 127/72
[2023-10-11] MEDS ORDERED: Trospium Chloride 20 MG Tab PO SCH (07:30)
--- NOTE | 2023-10-11 08:05 | NUR ---
SHIFT SUMMARY PT A&OX4 AND PLEASANT. NO C/O PAIN. CALLS APPROPRIATLY. PT ABLE TO SLEEP MOST OF THE NIGHT. VSS. DR PRASAD IN TO SEE PT DURING THE NIGHT. BED IN LOWEST POSITION AND CALL LIGHT IN REACH.
[2023-10-11] MEDS ORDERED: Clopidogrel Bisulfate 75 MG Tab PO SCH (09:00)
[2023-10-11] MEDS ORDERED: Docusate Sodium/Senna 1 Tab PO SCH ×2 (09:00→21:00)
[2023-10-11] MEDS ORDERED: Hydroxychloroquine Sulfate 200 MG Tab PO SCH (09:00)
[2023-10-11] MEDS ORDERED: Methotrexate Sod 2.5 MG Tab PO SCH (09:00)
[2023-10-11] MEDS ORDERED: AmLODIPine Besylate 5 MG Tab PO SCH (09:00)
[2023-10-11] MEDS ORDERED: Nicotine 7 MG PATCH TOP SCH (09:00)
[2023-10-11] MEDS ORDERED: Propranolol HCL 80 MG CAPCR PO SCH (09:00)
[2023-10-11] MEDS ORDERED: MELATONIN5 M1 PO (11:49)
[2023-10-11] MEDS ORDERED: Sod Phosphate/Sod Biphosphate 132 ML BTL PR PRN (15:45)
--- NOTE | 2023-10-11 15:48 | NUR ---
Patient is lying in bed and crying and so we began a conversation about what her tears mean. She tells me the story of the loss of her beloved of 45yrs, Piter, who last February of pancreatic cancer. She also shares about her medical challenges that began just before Thanksgiving of last yr and how she has wandy so hard for her independence, sight and mobility. She speaks of the strong family support, the laughter and the love. She talks about her luz that was mostly driven by Piter's devotion to God. She explains that she has had to lean into God for help and drive. We talk about what Piter would say to her today, about how the time with him was such a gift and what legacy she has the privilege of carrying forward. I normalize her feelings and fears, reinforce helpful attitudes and practices and provide therapeutic listening, grief support, anxiety containment and prayer. Patient responded well and showed signs of an increase in hope and andrea.
[2023-10-11 16:50] VITALS: BP 142/120
[2023-10-11 19:18] VITALS: BP 136/48
--- NOTE | 2023-10-11 19:19 | NUR ---
alert and oriented to all, family active in care, patient easily makes needs known, indepedant in room, dr zuniga consulted, enema given, patient has a rock hard stool impaction. vl mesenteric duplx study done at bedside, patient npo for the procedure, clarifying diet now. patient has had paste ckay colored stool, but minimal amount. palliative care to round on patient in the morning, chaplian rounding daily also, patient becomes very emotional and unconsolable at times when family is not at bedside. heating pad to abd, l and r uq pain still there, clarified all medications with family and updated the emar, call light with in reach, will relay to pm rn
[2023-10-11] MEDS ORDERED: TraZODone HCl 50 MG Tab PO SCH (21:00)
[2023-10-11] MEDS ORDERED: Gabapentin 100 MG Cap PO SCH (21:00)
[2023-10-11] MEDS ORDERED: Polyethylene Glycol 3350 17 gm PO SCH ×2 (21:00)
--- NOTE | 2023-10-12 04:32 | NUR ---
SHIFT SUMMARY PT A&O X4, SOME CONFUSION NOTICED OR POSSIBLY DUE TO HER SPEACH AND VISUAL IMPAIRMENT. PT IS BLIND IN LEFT EYE AND SPEAKS IN SHORT WORD SENTENCES. PT EXPRESSES THAT SHE HAD A HARD DAY. SHE EXPRESSES THAT HER DETERIORATING HEALTH MAKES HER EMOTIONAL AND SHE DOES NOT WANT ANY BURDENS ON HER CHILDREN. PT RECEIVED A SOAP SUDS ENEMA DURING DAY SHIFT. PT DID HAVE A SMEAR IN THE TOILET. PT DID NOT WANT ANOTHER ENEMA THIS SHSIFT. HOWEVER PT HAS FLEET ENEMAS ORDERED DAILY FOR CONSTIPATION. GAVE PT MIRILAX THIS SHIFT. BED KEPT IN LOWEST POSIITON WITH CALL LIGHT IN REACH. BED ALARM ON. HEAT PAD FOR ABD PAIN AND TP KEEP PT WARM.
[2023-10-12 06:01] VITALS: BP 111/62
[2023-10-12 06:02] LABS: Hematocrit 34.9 % (33.0-51.0); Hemoglobin 11.8 g/dL (11.5-16.0); Mean Corpuscular HGB 32.1 pg (26.0-34.0); Mean Corpuscular HGB Conc 33.8 g/dL (31.5-36.5); Mean Corpuscular Volume 95 fL (80-100); Platelet Count 196 K/mm3 (150-400); RDW Coefficient Variation 15.7 % (11.7-14.2); RDW Standard Deviation 54.9 fL (35.1-46.3); Red Blood Cell Count 3.68 M/mm3 (3.80-5.20)
[2023-10-12 06:23] LABS: Albumin, Blood 2.7 g/dL (3.4-5.0); Albumin/Globulin Ratio 0.8 (0.8-1.8); Bilirubin, Total 3.5 mg/dL (0.1-1.0); Bun/Creatinine Ratio 13.5 (12.0-20.0); Calcium, Blood 9.6 mg/dL (8.5-10.1); Creatinine, Blood 0.81 mg/dL (0.40-1.00); Globulin, Blood 3.4 g/dL (2.2-4.0); Potassium, Blood 3.7 mmol/L (3.5-5.5); Total Protein, Blood 6.1 g/dL (6.4-8.2)
[2023-10-12 06:28] LABS: BASOPHILS PERCENT MAN 0 % (0-2); EOSINOPHILS PERCENT MAN 5 % (0-6); LYMPHOCYTES % ATYPICAL MANUAL 1 % (0-0); LYMPHOCYTES PERCENT MAN 27 % (21-46); MONOCYTES PERCENT MAN 9 % (4-13); SEG NEUTROPHILS PERCENT MAN 58 % (41-73); TOTAL CELLS COUNTED 100
[2023-10-12 06:41] LABS: EOSINOPHILS ABSOLUTE MAN 0.42 K/mm3 (0.00-0.68); LYMPHOCYTES ABSOLUTE MAN 2.38 K/mm3 (0.84-5.20); MONOCYTES ABSOLUTE MAN 0.76 K/mm3 (0.16-1.47); NEUTROPHILS ABSOLUTE MAN 4.93 K/mm3 (1.96-9.15); White Blood Cell Count 8.51 K/mm3 (4.00-11.30)
[2023-10-12 07:45] VITALS: BP 112/68
--- NOTE | 2023-10-12 08:00 | NUR ---
Pt laying in bed awake a/ox3, forgetful, cooperative with care, is impulsive, and gets up indep, lungs are clear t/o, resp even and unlabored, no cough noted, on r/a, hrr, no edema noted, ppp +1, cap refill<3 sec, vs stable, afebrile, piv to rac site is clear and patent, btx4, abd flat soft nontender, voids without diff, skin c/w/d, maew, romeo, call light in reach.
[2023-10-12] MEDS ORDERED: Nicoderm Cq1 EACH TOP (10:45)
[2023-10-12] MEDS ORDERED: MIRALAX11910 PO (10:46)
[2023-10-12] MEDS ORDERED: AMLO5 PO (10:48)
--- NOTE | 2023-10-12 11:20 | NUR ---
Pt has been discharged to home, went over instructions with her and her daughter, they verbalized understanding, iv removed intact, faxed new medications to [facility]. she understands to call for follow up appts. has all belonings, and hard script for labs were given. left via wheelchair with daughter and graphics intern in attendence.
[2023-10-12 15:26] LABS: HEPATITIS A ANTIBODY, IGM Negative (Negative); HEPATITIS B CORE ANTIBODY, IGM Negative (Negative); HEPATITIS B SURFACE ANTIGEN Negative (Negative); HEPATITIS C AB CIA INTERP Negative (Negative); HEPATITIS C ANTIBODY CIA INDEX 0.03 IV
[2023-10-16] MEDS ORDERED: Alendronate Sodium 70 MG Tablet PO SCH (06:00)
== END 2023-10-12 11:50 | disposition home or self-care (01) | DRG 442 ==
LOC: ER 15:21 → MEDS 21:14
PROVIDERS: Family Medicine; Physician Assistant; Surgery; ADMIT Student in an Organized Health Care Education/Training Program
DX: K72.00 Acute and subacute hepatic failure without coma (principal); K55.1 Chronic vascular disorders of intestine; I10 Essential (primary) hypertension; M06.9 Rheumatoid arthritis, unspecified; K21.9 Gastro-esophageal reflux disease without esophagitis; F17.210 Nicotine dependence, cigarettes, uncomplicated; K59.09 Other constipation; J44.9 Chronic obstructive pulmonary disease, unspecified; R32 Unspecified urinary incontinence; Z86.73 Personal history of transient ischemic attack (TIA), and cerebral infarction without residual deficits; Z90.89 Acquired absence of other organs; Z98.890 Other specified postprocedural states; Z90.710 Acquired absence of both cervix and uterus; Z88.8 Allergy status to other drugs, medicaments and biological substances; Z88.2 Allergy status to sulfonamides; Z79.899 Other long term (current) drug therapy
CPT/HCPCS: 36415; 74177; 76705; 80048; 80053; 80074; 80076; 82140; 82248; 83690; 85025; 85610; 92610; 93975; 96361; 96374-59; 99285-25; A9270; G0480; J2060; J7030; J8610; Q9967